=== PATIENT | female | born 1935 | race Hispanic/Latino ===

== ENCOUNTER 2018-06-16 16:25 | Observation (INO) | payer MEDICARE ==
[~2018-06-16] VITALS: Ht 154.9 cm; Wt 56.7 kg
[2018-06-16] MEDS ORDERED: MORPHINE SULFATE 2 MG/ML SYR IV STA (16:35)
[2018-06-16] MEDS ORDERED: SODIUM CHLORIDE 0.9% 500ML 500 ML IV STA (16:35)
[2018-06-16] MEDS ORDERED: ONDANSETRON HCL INJ 2 MG/ML VIAL IV STA (16:35)
[2018-06-16 17:11] LABS: BASOPHILS # (AUTO) 0.1 (0.0-0.1); BASOPHILS % 0.7 % (0.0-1.0); EOSINOPHILS % 0.4 % (0.0-6.0); HEMATOCRIT 35.6 % (34.2-44.1); HEMOGLOBIN 11.8 g/dL (12.0-16.0); LYMPHOCYTES % 13.6 % (18.0-39.1); MEAN CORPUSCULAR HEMOGLOBIN 32.9 pg (28-32); MEAN CORPUSCULAR HGB CONC 33.1 g/dL (31-35); MEAN CORPUSCULAR VOLUME 99.2 fL (81-99); MONOCYTES # (AUTO) 0.3 (0.2-0.8); MONOCYTES % 4.2 % (4.4-11.3); NEUTROPHILS % 80.8 % (38.7-80.0); PLATELET COUNT 203 x10e3/uL (140-360); RED BLOOD COUNT 3.59 x10e6/uL (3.6-5.1); RED CELL DISTRIBUTION WIDTH 12.4 % (11.7-14.4)
[2018-06-16 17:21] LABS: INR 1.11; PARTIAL THROMBOPLASTIN TIME 25.9 seconds (23.8-35.5); PROTHROMBIN TIME 13.5 seconds (11.9-14.5)
[2018-06-16 17:32] LABS: ALANINE AMINOTRANSFERASE 11 IU/L (0-55); ALBUMIN 3.5 g/dL (3.5-5.0); ALBUMIN/GLOBULIN RATIO 1.1 (0.8-2.0); ALKALINE PHOSPHATASE 94 IU/L (40-150); AMYLASE 67 U/L (25-125); BLOOD UREA NITROGEN 15 mg/dL (7-26); BUN/CREATININE RATIO 24 (6-25); CALCIUM 9.2 mg/dL (8.4-10.2); CARBON DIOXIDE 23 mmol/L (22-29); CHLORIDE 105 mmol/L (98-107); CREATINE KINASE 59 IU/L (29-168); CREATININE, SERUM 0.63 mg/dL (0.57-1.11); EST GLOMERULAR FILTRATION RATE > 60 ML/MIN (60-); GLUCOSE 112 mg/dL (74-118); LIPASE 20 U/L (8-78); MAGNESIUM 2.1 MG/DL (1.3-2.1); SODIUM 139 mmol/L (136-145)
[2018-06-16 17:33] LABS: BILIRUBIN,URINE NEGATIVE (NEGATIVE); CLARITY,URINE CLEAR (CLEAR); COLOR,URINE YELLOW (YELLOW); KETONES,URINE NEGATIVE (NEGATIVE); LEUKOCYTE ESTERASE ,URINE NEGATIVE (NEGATIVE); NITRITE,URINE NEGATIVE (NEGATIVE); PROTEIN,URINE DIPSTICK NEGATIVE (NEGATIVE); URINE UROBILINOGEN 1 mg/dL (0.2 - 1)
--- NOTE | 2018-06-16 17:39 | Diagnostic Imaging Report ---
Examination: Single AP view of the chest. COMPARISON: None. INDICATION: Syncope IMPRESSION: 1. Lines and Tubes: None 2. Lungs are grossly clear. No consolidation or effusion. 3. Cardiomediastinal silhouette is normal. Pulmonary vasculature is normal. 4. No acute bony abnormalities. Degenerative changes in the thoracic spine and bilateral acromion clavicular joints. Ill-defined 1.1 cm calcification in the left breast. Correlate with mammography. Signed by: Dr. Yoni Chapa M.D. on 06/16/2018 5:35 PM
[2018-06-16 17:47] LABS: BACTERIA,URINE FEW /HPF; EPITHELIAL CELLS,URINE MODERATE /LPF; MUCUS,URINE MANY (RARE)
[2018-06-16] MEDS ORDERED: THORAZINE25 MG PO (18:12)
[2018-06-16] MEDS ORDERED: CARVEDILOL3.125 MG PO (18:12)
[2018-06-16] MEDS ORDERED: ALENDRONATE SOD70 MG PO (18:24)
[2018-06-16] MEDS ORDERED: PLAVIX75 MG PO (18:24)
[2018-06-16] MEDS ORDERED: MYRBETRIQ50 MG PO (18:24)
[2018-06-16] MEDS ORDERED: OMEPRAZOLE40 MG PO (18:24)
[2018-06-16] MEDS ORDERED: LOSARTAN POTAS100 MG PO (18:24)
[2018-06-16] MEDS ORDERED: NORCO 10-325 T1 EACH PO (18:24)
[2018-06-16] MEDS ORDERED: CITALOPRAM HBR20 MG PO (18:24)
[2018-06-16] MEDS ORDERED: NAMENDA10 MG PO (18:24)
[2018-06-16] MEDS ORDERED: BACLOFEN10 MG PO (18:24)
[2018-06-16] MEDS ORDERED: ATORVASTATIN CA20 MG PO (18:24)
[2018-06-16] MEDS ORDERED: MONTELUKAST SOD10 MG PO (18:24)
--- NOTE | 2018-06-16 19:55 | Diagnostic Imaging Report ---
EXAM: CT Abdomen and Pelvis WITH contrast INDICATION: \S\left lower abd pain w/ n/v- IV contrast only COMPARISON: None. TECHNIQUE: Abdomen and pelvis were scanned utilizing a multidetector helical scanner from the lung base to the pubic symphysis after administration of IV contrast. Coronal and sagittal reformations were obtained. Routine protocol was performed. Scan was performed when during portal venous phase. IV CONTRAST: 100 mL of Isovue-370 ORAL CONTRAST: None RADIATION DOSE: Total DLP: 170 mGy*cm Estimated effective dose: (DLP x 0.015 x size factor) mSv COMPLICATIONS: None FINDINGS: LINES and TUBES: None. LOWER THORAX: Unremarkable HEPATOBILIARY: No focal hepatic lesions. No biliary ductal dilation. GALLBLADDER: No radio-opaque stones or sludge. No wall thickening. SPLEEN: No splenomegaly. PANCREAS: No focal masses or ductal dilatation. ADRENALS: No adrenal nodules KIDNEYS/URETERS: Kidneys enhance symmetrically. No hydronephrosis. No cystic or solid mass lesions. No stones. GI TRACT: No abnormal distention, wall thickening, or evidence of bowel obstruction. Appendix is not visualized but no inflammatory changes in the right lower quadrant. PELVIC ORGANS/BLADDER: Unremarkable. LYMPH NODES: No lymphadenopathy. VESSELS: Unremarkable. PERITONEUM / RETROPERITONEUM: No free air or fluid. BONES: Partially visualized intramedullary jeremy in the left femur. Remote posttraumatic deformity of the left inferior pubic ramus. Multilevel degenerative changes of the lumbar spine. SOFT TISSUES: Unremarkable. IMPRESSION: No acute abnormality within the abdomen and pelvis. Signed by: Dr. Darby Buckley M.D. on 06/16/2018 7:52 PM
[2018-06-16] MEDS: SODIUM CHLORIDE 0.9% 1000ML 1,000 ML IV SCH (20:24)
[2018-06-16] MEDS ORDERED: SODIUM CHLORIDE 0.9% 50ML 50 ML ONE (21:07)
[2018-06-16] MEDS ORDERED: IOPAMIDOL 370 MG/ML 200 ML INFUS..BTL INJ ONE (21:07)
[2018-06-16 21:45] VITALS: BP 144/66
[2018-06-16 22:00] VITALS: BP 146/74
[2018-06-16] MEDS: ONDANSETRON HCL INJ 2 MG/ML VIAL IV PRN (23:22)
[2018-06-16] MEDS: MORPHINE SULFATE 2 MG/ML SYR IV PRN (23:22)
[2018-06-17] VITALS (10 sets, daily range): BP systolic 115–158; BP diastolic 56–74
[2018-06-17] MEDS: ACETAMINOPHEN 325 MG TAB PO PRN (03:16)
[2018-06-17 05:32] LABS: BASOPHILS # (AUTO) 0.1 (0.0-0.1); EOSINOPHILS # (AUTO) 0.1 (0.0-0.4); EOSINOPHILS % 2.2 % (0.0-6.0); HEMATOCRIT 31.7 % (34.2-44.1); HEMOGLOBIN 10.6 g/dL (12.0-16.0); LYMPHOCYTES # (AUTO) 1.2 (1.0-3.2); LYMPHOCYTES % 23.5 % (18.0-39.1); MEAN CORPUSCULAR HEMOGLOBIN 32.9 pg (28-32); MEAN CORPUSCULAR HGB CONC 33.4 g/dL (31-35); MEAN CORPUSCULAR VOLUME 98.4 fL (81-99); MONOCYTES # (AUTO) 0.4 (0.2-0.8); MONOCYTES % 7.7 % (4.4-11.3); NEUTROPHILS # (AUTO) 3.2 (2.1-6.9); NEUTROPHILS % 65.4 % (38.7-80.0); PLATELET COUNT 202 x10e3/uL (140-360); RED BLOOD COUNT 3.22 x10e6/uL (3.6-5.1); RED CELL DISTRIBUTION WIDTH 12.4 % (11.7-14.4)
[2018-06-17 05:54] LABS: CREATINE KINASE MB 0.7 ng/mL (0-5.0)
[2018-06-17 06:05] LABS: ANION GAP 10.3 mmol/L (8-16); BLOOD UREA NITROGEN 10 mg/dL (7-26); BUN/CREATININE RATIO 17 (6-25); CALCIUM 8.7 mg/dL (8.4-10.2); CARBON DIOXIDE 25 mmol/L (22-29); CHLORIDE 109 mmol/L (98-107); EST GLOMERULAR FILTRATION RATE > 60 ML/MIN (60-); GLUCOSE 98 mg/dL (74-118); POTASSIUM 3.3 mmol/L (3.5-5.1); SODIUM 141 mmol/L (136-145)
[2018-06-17] MEDS: HYDROCODONE/APAP 10MG-325MG TAB PO PRN ×2 (08:00→17:30)
[2018-06-17] MEDS: SODIUM CHLORIDE 0.9% 1000ML 1,000 ML IV SCH ×2 (10:47→23:04)
[2018-06-17 12:29] LABS: CREATINE KINASE MB 0.6 ng/mL (0-5.0)
[2018-06-17] MEDS ORDERED: PANTOPRAZOLE SOD 40 MG TABEC PO ONE (15:45)
[2018-06-17 15:51] LABS: % IRON SATURATION 29 % (15-50); IRON 78 ug/dL (50-170); TOTAL IRON BINDING CAPACITY 265 ug/dL (261-478); TRANSFERRIN 189 mg/dL (180-382)
[2018-06-17 16:10] LABS: FOLATE 17.9 ng/mL (7.0-15.4)
[2018-06-17] MEDS: CARVEDILOL 3.125 MG TAB PO SCH (17:30)
[2018-06-17] MEDS: MEMANTINE 10 MG TAB PO SCH (17:30)
[2018-06-17] MEDS: LOSARTAN POTASSIUM 25 MG TAB PO SCH (17:30)
--- NOTE | 2018-06-17 17:58 | History and Physical ---
Patient of Dr. Lv Salazar and Dr. Khoury. [facility] 83[facility] with a history of dementia and depression. She denies history of coronary disease. Episode of near syncope after vomiting twice. She also had chills and elevated blood pressure. She has a history of chronic left upper quadrant pain for 3 months. She has a history of attempted colonoscopy, but failed. History of decreased appetite, history of tooth extraction recently. History of strokes times 2. History of fall and left hip repair. History of hypertension and coronary disease with stent. Born in and housewife. ALLERGIES: ADENOSINE, QUESTIONABLE BETA HAIR. She is on Coreg, Persantine and Procaine. Complains of chronic weakness, shortness of breath with the pain in the left upper quadrant. Stroke in November affected her speech, which has recovered. She has had coronary stents. She denies depression, but the family says she has been depressed. MEDICATIONS: Include losartan, alendronate, Lipitor, Baclofen, Coreg, Celexa, Plavix, Vicodin, and Namenda. PHYSICAL EXAMINATION GENERAL: She is a well-developed white female in no acute distress. Appears stated age. VITALS: Temperature 98.6, pulse 77, respirations 20, blood pressure 158/70. HEENT: Head is normocephalic and atraumatic. HEART: Regular rhythm. ABDOMEN: Tender in the left upper quadrant. EXTREMITIES: Nonedematous. IMPRESSION 1. Vasovagal near syncope. 2. Weight loss. 3. Anemia. 4. Left upper quadrant pain. The patient has agreed to allow GI opinion. Will ask Dr. Robert Voss to see the patient. Physical therapy. Evaluation of anemia. Continue home medications. Reduce dose of losartan. Check postural signs. Thank you for this kind referral. Job#: [id number] DE
[2018-06-17] MEDS: BACLOFEN 10 MG TAB PO SCH (21:30)
[2018-06-17] MEDS: ATORVASTATIN 40 MG TAB PO SCH (21:30)
[2018-06-17] MEDS: HEPARIN SOD (PORCINE) 5,000 UNIT/ML VIAL SC SCH (21:35)
[2018-06-17] MEDS ORDERED: CYANOCOBALAMIN INJ 1,000 MCG/ML VIAL IM STA (22:24)
[2018-06-17] MEDS ORDERED: DONNATAL/LIDOCAINE/MAALOX 30 ML SUSP PO ONE ×2 (22:30→23:00)
[2018-06-17] MEDS ORDERED: PANTOPRAZOLE 40 MG 10ML VIAL IV STA (22:39)
[2018-06-17] MEDS: PANTOPRAZOLE 40 MG 10ML VIAL IV SCH (23:15)
[2018-06-17] MEDS ORDERED: MAGNESIUM/ALUMINUM/SIMETHICONE 30 ML UDC PO ONE (23:30)
[2018-06-17] MEDS ORDERED: LIDOCAINE VISC 2% SOLN 15 ML UDC PO ONE (23:30)
[2018-06-17] MEDS ORDERED: BELLADONNA ALK/PHENOBARBITAL 5 ML UDC PO ONE (23:30)
[2018-06-18] VITALS (8 sets, daily range): BP systolic 121–174; BP diastolic 58–74
[2018-06-18] MEDS: HYDROCODONE/APAP 10MG-325MG TAB PO PRN ×2 (02:32→11:01)
[2018-06-18] MEDS: ACETAMINOPHEN 325 MG TAB PO PRN (05:22)
[2018-06-18] MEDS ORDERED: ALENDRONATE SODIUM 70 MG TAB PO SCH (07:30)
[2018-06-18] MEDS ORDERED: PANTOPRAZOLE SOD 40 MG TABEC PO SCH ×2 (07:30→09:00)
[2018-06-18] MEDS ORDERED: CLOPIDOGREL BISULFATE 75 MG TAB PO SCH (09:00)
[2018-06-18] MEDS: CYANOCOBALAMIN INJ 1,000 MCG/ML VIAL IM SCH (09:32)
[2018-06-18] MEDS: PANTOPRAZOLE 40 MG 10ML VIAL IV SCH ×2 (09:32→21:30)
[2018-06-18] MEDS: CARVEDILOL 3.125 MG TAB PO SCH ×2 (09:32→16:58)
[2018-06-18] MEDS: CITALOPRAM HYDROBROMIDE 20 MG TAB PO SCH (09:32)
[2018-06-18] MEDS: LOSARTAN POTASSIUM 25 MG TAB PO SCH ×2 (09:33→16:57)
[2018-06-18] MEDS: MONTELUKAST SODIUM 10 MG TAB PO SCH (09:33)
[2018-06-18] MEDS: HEPARIN SOD (PORCINE) 5,000 UNIT/ML VIAL SC SCH ×2 (09:33→21:20)
[2018-06-18] MEDS: MEMANTINE 10 MG TAB PO SCH ×2 (09:33→16:57)
[2018-06-18] MEDS: SODIUM CHLORIDE 0.9% 1000ML 1,000 ML IV SCH (12:12)
[2018-06-18] MEDS: ATORVASTATIN 40 MG TAB PO SCH (21:30)
[2018-06-18] MEDS: BACLOFEN 10 MG TAB PO SCH (21:30)
[2018-06-19] VITALS (7 sets, daily range): BP systolic 124–161; BP diastolic 58–71
[2018-06-19] MEDS ORDERED: TRAZODONE HCL 50 MG TAB ONE (00:32)
[2018-06-19] MEDS: SODIUM CHLORIDE 0.9% 1000ML 1,000 ML IV SCH ×2 (01:54→14:57)
[2018-06-19] MEDS: ONDANSETRON HCL INJ 2 MG/ML VIAL IV PRN (03:44)
[2018-06-19] MEDS: MORPHINE SULFATE 2 MG/ML SYR IV PRN ×2 (03:45→12:16)
[2018-06-19] MEDS: HEPARIN SOD (PORCINE) 5,000 UNIT/ML VIAL SC SCH (09:00)
[2018-06-19] MEDS: MEMANTINE 10 MG TAB PO SCH ×2 (09:00→17:10)
[2018-06-19] MEDS: MONTELUKAST SODIUM 10 MG TAB PO SCH (09:00)
[2018-06-19] MEDS: CITALOPRAM HYDROBROMIDE 20 MG TAB PO SCH (09:57)
[2018-06-19] MEDS: CYANOCOBALAMIN INJ 1,000 MCG/ML VIAL IM SCH (09:57)
[2018-06-19] MEDS: PANTOPRAZOLE 40 MG 10ML VIAL IV SCH (09:57)
[2018-06-19] MEDS: LOSARTAN POTASSIUM 25 MG TAB PO SCH ×2 (10:01→17:10)
[2018-06-19] MEDS: CARVEDILOL 3.125 MG TAB PO SCH ×2 (10:01→17:10)
[2018-06-19] MEDS ORDERED: POTASSIUM CHLORIDE 20MEQ/100ML 200 ML IV ONE (11:30)
--- NOTE | 2018-06-19 15:48 | Operative Report ---
DATE OF PROCEDURE: June 19, 2018 REFERRING PHYSICIAN: Dr. Khoury/Dr. Lance PROCEDURE PERFORMED: Esophagogastroduodenoscopy with biopsies. INDICATIONS FOR EGD: Upper abdominal pain, primarily left upper quadrant. MEDICATION: Patient was done under MAC. Please see anesthesiologist's note. PROCEDURE: With the patient in the left lateral decubitus position, the flexible fiberoptic Olympus gastroscope was introduced into the esophagus under direct visualization without any difficulty. There was some patchy erythema noted in the distal esophagus. The scope was then advanced with ease into the stomach, traversing a small sliding hiatal hernia. Mucosa overlying the antrum and the body revealed some patchy erythema and low-grade to moderate edema, and biopsies were obtained and sent to stain for H. pylori. Pylorus appeared to be of normal contour and shape. It was intubated with ease, and the scope was advanced all the way to the 2nd portion of the duodenum. The scope was then withdrawn slowly. Mucosa overlying the proximal 2nd portion and the duodenal bulb appeared to be within normal limits. The scope was then withdrawn back into the stomach and retroflexed. Mucosa overlying the fundus and cardia appeared to be within normal limits. The scope was then straightened out. It was subsequently withdrawn. Patient tolerated the procedure well. IMPRESSION 1. Distal esophagitis. 2. Small sliding hiatal hernia. 3. Gastritis, biopsied. Biopsies sent to stain for H. pylori. PLAN: Follow up histology. Initiate Protonix 40 mg 1 p.o. q.a.m. a.c. Job#: [id number] cc:MD ROSALVA ABDUL MD
[2018-06-19] MEDS ORDERED: CARAFATE1 GM/10 ML PO (17:27)
[2018-06-19] MEDS ORDERED: PANTOPRAZOLE SO40 MG PO (17:27)
[2018-06-19] MEDS ORDERED: LIDOCAINE HCL 2% LOCAL INJ 5 ML SDV VIAL INJ ONE (19:46)
[2018-06-19] MEDS ORDERED: PROPOFOL IV EMULSION 10 MG/ML 50 ML VIAL IV ONE (19:46)
--- NOTE | 2018-06-22 16:35 | Discharge Summary ---
FINAL DIAGNOSES 1. Near syncope. 2. Weight loss. 3. Anemia. 4. History of hypertension. ADMISSION HISTORY AND HOSPITAL COURSE: Ms. Campbell is an 83-year-old female who has dementia and depression, presented with near syncopal episode. Patient was found to be anemic. GI was consulted. Dr. Robert Voss performed EGD, which showed evidence of esophagitis and hiatal hernia and he recommended the patient can be discharged home. Discharge medication list was reviewed. Patient will be discharged home to follow up with her primary care physician and follow up with Dr. Robert Voss. EMANUEL JC MD Job#: [id number] VAS
== END 2018-06-19 19:47 | disposition home or self-care (01) ==
LOC: ER 16:25 → ERHOLD 20:12 → MED/SURG 21:46
PROVIDERS: ADMIT Internal Medicine; ATTEND Internal Medicine
DX: R55 Syncope and collapse (principal); R11.2 Nausea with vomiting, unspecified; F03.90 Unspecified dementia, unspecified severity, without behavioral disturbance, psychotic disturbance, mood disturbance, and anxiety; D64.9 Anemia, unspecified; R63.4 Abnormal weight loss; I25.10 Atherosclerotic heart disease of native coronary artery without angina pectoris; Z95.5 Presence of coronary angioplasty implant and graft; Z86.73 Personal history of transient ischemic attack (TIA), and cerebral infarction without residual deficits; K20.9 Esophagitis, unspecified; K44.9 Diaphragmatic hernia without obstruction or gangrene; K29.70 Gastritis, unspecified, without bleeding; Z88.8 Allergy status to other drugs, medicaments and biological substances; R10.12 Left upper quadrant pain
CPT/HCPCS: 36415 ×2; 43239; 71045; 74177; 80048; 80053; 81001; 82150; 82550 ×2; 82553 ×2; 82607; 82746; 83090; 83540; 83690; 83735; 83921; 84466; 84484 ×2; 85025 ×2; 85610; 85730; 88305; 88312; 93005; 97116; 97161; 99284; G0378 ×4; G8978; G8980; J1644 ×2; J2001; J2270 ×3; J2405 ×3; J3420 ×3; J3480; J7030 ×4; J7040; Q9967; S0164

== ENCOUNTER → 2018-07-27 | Day surgery (SDC) | payer MEDICARE, OTHER ==
[2018-07-17 16:53] LABS: BASOPHILS % 0.8 % (0.0-1.0); EOSINOPHILS # (AUTO) 0.2 (0.0-0.4); EOSINOPHILS % 3.2 % (0.0-6.0); HEMATOCRIT 36.9 % (34.2-44.1); HEMOGLOBIN 12.5 g/dL (12.0-16.0); LYMPHOCYTES # (AUTO) 1.5 (1.0-3.2); LYMPHOCYTES % 27.8 % (18.0-39.1); MEAN CORPUSCULAR HGB CONC 33.9 g/dL (31-35); MEAN CORPUSCULAR VOLUME 97.4 fL (81-99); MONOCYTES # (AUTO) 0.3 (0.2-0.8); MONOCYTES % 6.4 % (4.4-11.3); NEUTROPHILS # (AUTO) 3.3 (2.1-6.9); NEUTROPHILS % 61.6 % (38.7-80.0); PLATELET COUNT 213 x10e3/uL (140-360); RED BLOOD COUNT 3.79 x10e6/uL (3.6-5.1); RED CELL DISTRIBUTION WIDTH 12.3 % (11.7-14.4)
[~2018-07-27] MED LIST: ALENDRONATE SOD70 MG PO; ASPIRIN81 MG PO; ATORVASTATIN CA20 MG PO; BACLOFEN10 MG PO; CARAFATE1 GM/10 ML PO; CARVEDILOL3.125 MG PO; CIPRO500 MG PO; CITALOPRAM HBR20 MG PO; LIDOCAINE HCL 2% LOCAL INJ 5 ML SDV VIAL INJ ONE; LOSARTAN POTAS100 MG PO; MONTELUKAST SOD10 MG PO; MYRBETRIQ50 MG PO; NAMENDA10 MG PO; NIFEDIPINE ER30 M1 PO; NORCO 10-325 T1 EACH PO; OMEPRAZOLE40 MG PO; PANTOPRAZOLE SO40 MG PO; PLAVIX75 MG PO; PROPOFOL IV EMULSION 10 MG/ML 20 ML VIAL ONE; THORAZINE25 MG PO
--- OUTSIDE RECORDS SUMMARY | 2018-07-27 07:45 | XMS REPORT | Continuity of Care Document ---
Author Author [facility] lizbet [facility] Interface Address Unknown Phone Unavailable Problems Problem Status Onset Date Classification Date Reported Comments Source FX OF PROXIMAL END OF LEFT FEMUR Active 12/06/2017 [facility] FX Active 12/06/2017 [facility] DISPLACED INTERTROCHANTERIC FRACTURE OF Active [facility] Medications Medication Details Route Status Patient Instructions Ordering Provider Order Date Source Allergies, Adverse Reactions, Alerts Substance Category Reaction Severity Reaction type Status Date Reported Comments Source Immunizations Immunization Date Given Site Status Last Updated Comments Source Results Order Name Results Value Reference Range Date Interpretation Comments Source Carotid artery Doppler bilat US Carotid artery Doppler bilat US EXAM: US EXTRACRANIAL ARTERIAL DOPPLER DATE: 12/11/2017 5:41 PM [facility] INDICATION: - repeated syncope with no EKG changes ADDITIONAL INFORMATION: None. COMPARISON: None. TECHNIQUE: Multiplanar grayscale, color Doppler and spectral Doppler ultrasound of the carotid and vertebral arteries. FINDINGS: Right Carotid System: Right Common Carotid Artery (RCCA): PSV 1 30 cm/s. No significant plaque. Right Internal Carotid Artery (REBEKAH): PSV 89 cm/s. No significant plaque. Right External Carotid Artery (RECA): PSV 198 cm/s. No significant plaque. ICA/CCA ratio 0.68 Right Vertebral Artery (RVA): Normal velocity and waveform. Left Carotid System: Left Common Carotid Artery (LCCA): PSV 104 cm/s. No significant plaque. Left Internal Carotid Artery (LICA): PSV 102 cm/s. No significant plaque. Left External Carotid Artery (LECA): PSV 1 78 cm/s. No significant plaque. IC/CC ratio 0.98 Left Vertebral Artery (LVA): Normal velocity and waveform. IMPRESSION: 1. Right internal carotid artery: No hemodynamically significant stenosis. 2. Left internal carotid artery: No hemodynamically significant stenosis. 3. Vertebral arteries: Antegrade flow with normal waveforms bilaterally. According to the 2003 Consensus criteria: <50% stenosis: PSV <125 cm/sec, EDV <40cm/sec, ICA:CCA ratio <2 50-69% stenosis: PSV 125-230cm/sec, EDV 40-100cm/sec, ICA:CCA ratio 2-4 >70% stenosis: PSV >230cm/sec, EDV >100cm/sec, ICA:CCA ratio >4 REFERENCE: Radiology. 2003 [id number]. Carotid Artery Stenosis: Wood-scale and Doppler US diagnosis- Society of Radiologists in Ultrasound Consensus Conference. Daron EG, Naldo CB, [place]yenne GL, et. al. 12/12/2017 - - This report was dictated by a [employer]/Fellow. I have personally reviewed the images as well as the Resident's interpretation and agree with the findings. Read by: Alexus Vigil MD Resident: Alexus Vigil MD Dictated Date/time: 12/13/17 08:28 Electronically Signed by: David Reinoso MD 12/13/17 11:58 FINAL REPORT [facility] Femur series DX Femur series DX EXAM: XR FEMUR 2 VIEWS DATE: 12/07/2017 2:07 PM HOSIERY MATER INDICATION: POST OP XRAY IM NAIL LT FEMUR - POST OP XRAY IM NAIL LT FEMUR COMPARISON: Left femur series 12/06/2017 TECHNIQUE: AP and lateral radiographs of the femur Laterality: Left FINDINGS: Satisfactory alignment of left intertrochanteric femur fracture post cephalomedullary nail fixation. Mildly displaced nonfixated lesser trochanter fragment noted. No hardware malalignment. Mild hip soft tissue gas. IMPRESSION: Satisfactory appearance of internally fixated intertrochanteric femur fracture. 12/07/2017 - - Read by: Mumtaz Romano MD Dictated Date/time: 12/07/17 17:22 Electronically Signed by: Mumtaz Romano MD 12/07/17 17:24 FINAL REPORT [facility] Vital Signs Vital Sign Value Date Comments Source Encounters Location Location Details Encounter Type Encounter Number Reason For Visit Attending Provider ADM Date DC Date Status Source Procedures Procedure Code Date Perfomer Comments Source
--- OUTSIDE RECORDS SUMMARY | 2018-07-27 07:45 | XMS REPORT | Clinical Summary ---
Author Author [facility] Organization [facility] Address Unknown Phone Unavailable Care Team Providers Care Tennis Instructor Name Role Phone PCP Unavailable Allergies Active Allergy Reactions Severity Noted Date Comments Adenosine 12/06/2017 Beta-Blockers 12/06/2017 (Beta-Adrenergic Blocking Agts) Procaine Hcl 12/06/2017 Current Medications Prescription Sig. Disp. Refills Start End Date Status Date amLODIPine (NORVASC) 10 Take 10 mg by mouth Active mg tablet daily. hydrochlorothiazide Take 25 mg by mouth Active (HYDRODIURIL) 25 mg daily. tablet metoprolol (TOPROL XL) 50 Take 50 mg by mouth Active mg extended release daily. tablet atorvastatin (LIPITOR) 40 Take 40 mg by mouth at Active mg tablet bedtime nightly. ASPIRIN EC (ASPIR-LOW) 81 Take 81 mg by mouth Active mg delayed release tablet daily. chlorhexidine (PERIDEX) Swish with 1/2 oz of 473 mL 0 08/10/20 Active 0.12 % mouth solution in mouth for 30 18 washIndications: seconds and spit. Use Dentalgia twice daily.. naproxen (NAPROSYN) 500 Take 1 tablet by mouth 2 30 tablet 0 08/10/20 Active mg tabletIndications: times daily (with meals). 18 Dentalgia Active Problems Problem Noted Date Acute pain of left hip 12/06/2017 Fall 12/06/2017 Hypoxia 12/06/2017 Closed comminuted intertrochanteric fracture of left femur 12/06/2017 Overview: Added automatically from request for surgery [id number] GERD (gastroesophageal reflux disease) 04/11/2014 Encounters Date Type Specialty Care Team Description 05/19/2018 Office Visit Family Practice Evan Burnham PA Dentalgia (Primary Dx) 12/07/2017 Telephone Sterling Bustos Carmen Interpretation Chele 12/07/2017 Procedure Pass 12/06/2017 Emergency Emergency Medicine Eldon Garcia MD Acute pain of left hip Stacey Oconnell MD (Primary Dx); Fall, initial encounter; Hypoxia after 07/26/2017 Immunizations Name Dates Previously Given Next Due Pcv-13 Pneumococcal 05/19/2018 (Deferred: Patient Refused) Conjugate Social History Tobacco Use Types Packs/Day Years Used Date Never Smoker Smokeless Tobacco: Never Used Alcohol Use Drinks/Week oz/Week Comments No Sex Assigned at Date Recorded Not on file Last Filed Vital Signs Vital Sign Reading Time Taken Blood Pressure 120/85 05/19/2018 2:09 PM CDT Pulse 78 05/19/2018 2:09 PM CDT Temperature 37.1 C (98.7 F) 05/19/2018 2:09 PM CDT Respiratory Rate 19 05/19/2018 2:09 PM CDT Oxygen Saturation 99% 12/06/2017 5:15 PM [employer] Inhaled Oxygen - - Concentration Weight 52.2 kg (115 lb) 05/19/2018 2:09 PM CDT Height 154.9 cm (5' 1") 05/19/2018 2:09 PM CDT Body Mass Index 21.73 05/19/2018 2:09 PM CDT Plan of Treatment Health Maintenance Due Date Last Done Comments IMM Pneumococcal Age 65 01/18/2001 and Up IMM Influenza Seasonal 07/10/2018Jul to December (>/=19 yrs) Procedures Procedure Name Priority Date/Time Associated Diagnosis Comments XRAY CHEST 1 VIEW STAT 12/06/2017 Acute pain of left hip Results for this 4:28 PM [employer] procedure are in the results section. UA CHEMISTRIES STAT 12/06/2017 Results for this 4:13 PM [employer] procedure are in the results section. XRAY KNEE 1 OR 2 VIEWS STAT 12/06/2017 Acute pain of left hip Results for this (LIMITED-AP/LAT) 3:01 PM [employer] procedure are in the results section. XRAY CHEST 1 VIEW STAT 12/06/2017 Hypoxia Results for this 3:01 PM [employer] procedure are in the results section. XRAY FEMUR 2 VIEWS STAT 12/06/2017 Acute pain of left hip Results for this 3:01 PM [employer] procedure are in the results section. XRAY HIP BILATERAL 2 STAT 12/06/2017 Acute pain of left hip Results for this VIEWS AND AP PELVIS 3:01 PM [employer] procedure are in the results section. BMP POC Routine 12/06/2017 Results for this 2:43 PM [employer] procedure are in the results section. CT HEAD W/O CONTRAST STAT 12/06/2017 Fall, initial encounter Results for this 2:15 PM [employer] procedure are in the results section. 12 LEAD EKG Routine 12/06/2017 Results for this 1:53 PM [employer] procedure are in the results section. VBG POC Routine 12/06/2017 Results for this 1:48 PM [employer] procedure are in the results section. TROPONIN I POC Routine 12/06/2017 Results for this 1:45 PM [employer] procedure are in the results section. TYPE AND SCREEN STAT 12/06/2017 1:40 PM [employer] PT/INR/PTT STAT 12/06/2017 Results for this 1:40 PM [employer] procedure are in the results section. CBC/DIFF STAT 12/06/2017 Results for this 1:40 PM [employer] procedure are in the results section. after 07/26/2017 Results * XRAY CHEST 1 VIEW (12/06/2017 4:28 PM) Only the most recent of 2 results within the time period is included. Impressions Performed At IMPRESSION:No acute radiographic abnormality of the chest SMS Signed By: Williams Muhammad MD, 12/06/2017 4:22 PM Narrative Performed At EXAM: XR CHEST 1 VIEW SMS DATE:12/06/2017 4:10 PM INDICATION: preop COMPARISON: 12/06/2017 TECHNIQUE:AP chest. DISCUSSION: Lines/tubes/devices: None. Lungs and pleura: The lungs are clear. The costophrenic sulci are sharp, without effusion. Pulmonary vascularity is normal. Heart and mediastinum: The heart size is normal. Mediastinal contours are normal. Bones: No acute bony abnormality is identified. Procedure Note Interface, Rad/Mammog In - 12/06/2017 4:44 PM [employer] EXAM: XR CHEST 1 VIEW DATE: 12/06/2017 4:10 PM INDICATION: preop COMPARISON: 12/06/2017 TECHNIQUE: AP chest. DISCUSSION: Lines/tubes/devices: None. Lungs and pleura: The lungs are clear. The costophrenic sulci are sharp, without effusion. Pulmonary vascularity is normal. Heart and mediastinum: The heart size is normal. Mediastinal contours are normal. Bones: No acute bony abnormality is identified. IMPRESSION IMPRESSION: No acute radiographic abnormality of the chest Signed By: Williams Muhammad MD, 12/06/2017 4:22 PM Performing Organization Address City/State/Zipcode Phone Number SMS * UA CHEMISTRIES (12/06/2017 4:13 PM) Color Yellow [facility] Clarity Clear [facility] Spec [place] 1.025 1.001 - 1.035 [facility] pH 5.0 5 - 8 [facility] Protein 1+ (A) NEG [facility] Glucose Negative NEG [facility] Ketone Trace (A) NEG [facility] Bilirubin Negative NEG [facility] Nitrate Negative NEG [facility] Urobilinogen <1.0 0.2 - 1.0 EU/dL [facility] Leukocyte Negative NEG [facility] Blood Negative NEG [facility] RBC 1 0 - 4 /HPF [facility] WBC 1 0 - 5 /HPF [facility] Bacteria Few [facility] Epithelial Cell <1 /HPF [facility] Mucous Present [facility] Hyaline Cast 3 /LPF [facility] Specimen Urine Performing Organization Address City/State/[facility] Phone [facility] * XRAY FEMUR 2 VIEWS (12/06/2017 3:01 PM) Impressions Performed At IMPRESSION: Comminuted and mildly displaced intertrochanteric left femur SMS fracture with associated soft tissue swelling Signed By: Williams Muhammad MD, 12/06/2017 3:33 PM Narrative Performed At EXAM: XR BILATERAL HIP 2 VIEWS SMS EXAM: XR LEFT FEMUR 2 VIEWS EXAM: XR LEFT KNEE 2 VIEWS DATE:12/06/2017 3:01 PM INDICATION: pain s/p fall COMPARISON: None TECHNIQUE: AP and frog-leg lateral views of the bilateral hips including the pelvis, AP and lateral radiographs of the left femur and left knee. DISCUSSION: There is a comminuted and mildly displaced intertrochanteric left femur fracture demonstrating mild varus angulation. There is mild superomedial displacement of the fractured lesser trochanter. Alignment of the femur at the hip and knee joints is normal. Left hip soft tissue swelling is visualized associated with the fracture. No other acute fracture. Left knee appears intact. No knee joint effusion. Procedure Note Interface, Rad/Mammog In - 12/06/2017 3:38 PM [employer] EXAM: XR BILATERAL HIP 2 VIEWS EXAM: XR LEFT FEMUR 2 VIEWS EXAM: XR LEFT KNEE 2 VIEWS DATE: 12/06/2017 3:01 PM INDICATION: pain s/p fall COMPARISON: None TECHNIQUE: AP and frog-leg lateral views of the bilateral hips including the pelvis, AP and lateral radiographs of the left femur and left knee. DISCUSSION: There is a comminuted and mildly displaced intertrochanteric left femur fracture demonstrating mild varus angulation. There is mild superomedial displacement of the fractured lesser trochanter. Alignment of the femur at the hip and knee joints is normal. Left hip soft tissue swelling is visualized associated with the fracture. No other acute fracture. Left knee appears intact. No knee joint effusion. IMPRESSION IMPRESSION: Comminuted and mildly displaced intertrochanteric left femur fracture with associated soft tissue swelling Signed By: Williams Muhammad MD, 12/06/2017 3:33 PM Performing Organization Address City/State/Zipcode Phone Number SMS * XRAY HIP BILATERAL 2 VIEWS AND AP PELVIS (12/06/2017 3:01 PM) Impressions Performed At IMPRESSION: Comminuted and mildly displaced intertrochanteric left femur SMS fracture with associated soft tissue swelling Signed By: Williams Muhammad MD, 12/06/2017 3:33 PM Narrative Performed At EXAM: XR BILATERAL HIP 2 VIEWS SMS EXAM: XR LEFT FEMUR 2 VIEWS EXAM: XR LEFT KNEE 2 VIEWS DATE:12/06/2017 3:01 PM INDICATION: pain s/p fall COMPARISON: None TECHNIQUE: AP and frog-leg lateral views of the bilateral hips including the pelvis, AP and lateral radiographs of the left femur and left knee. DISCUSSION: There is a comminuted and mildly displaced intertrochanteric left femur fracture demonstrating mild varus angulation. There is mild superomedial displacement of the fractured lesser trochanter. Alignment of the femur at the hip and knee joints is normal. Left hip soft tissue swelling is visualized associated with the fracture. No other acute fracture. Left knee appears intact. No knee joint effusion. Procedure Note Interface, Rad/Mammog In - 12/06/2017 3:38 PM [employer] EXAM: XR BILATERAL HIP 2 VIEWS EXAM: XR LEFT FEMUR 2 VIEWS EXAM: XR LEFT KNEE 2 VIEWS DATE: 12/06/2017 3:01 PM INDICATION: pain s/p fall COMPARISON: None TECHNIQUE: AP and frog-leg lateral views of the bilateral hips including the pelvis, AP and lateral radiographs of the left femur and left knee. DISCUSSION: There is a comminuted and mildly displaced intertrochanteric left femur fracture demonstrating mild varus angulation. There is mild superomedial displacement of the fractured lesser trochanter. Alignment of the femur at the hip and knee joints is normal. Left hip soft tissue swelling is visualized associated with the fracture. No other acute fracture. Left knee appears intact. No knee joint effusion. IMPRESSION IMPRESSION: Comminuted and mildly displaced intertrochanteric left femur fracture with associated soft tissue swelling Signed By: Williams Muhammad MD, 12/06/2017 3:33 PM Performing Organization Address City/State/Zipcode Phone Number SMS * XRAY KNEE 1 OR 2 VIEWS (LIMITED-AP/LAT) (12/06/2017 3:01 PM) Impressions Performed At IMPRESSION: Comminuted and mildly displaced intertrochanteric left femur SMS fracture with associated soft tissue swelling Signed By: Williams Muhammad MD, 12/06/2017 3:33 PM Narrative Performed At EXAM: XR BILATERAL HIP 2 VIEWS SMS EXAM: XR LEFT FEMUR 2 VIEWS EXAM: XR LEFT KNEE 2 VIEWS DATE:12/06/2017 3:01 PM INDICATION: pain s/p fall COMPARISON: None TECHNIQUE: AP and frog-leg lateral views of the bilateral hips including the pelvis, AP and lateral radiographs of the left femur and left knee. DISCUSSION: There is a comminuted and mildly displaced intertrochanteric left femur fracture demonstrating mild varus angulation. There is mild superomedial displacement of the fractured lesser trochanter. Alignment of the femur at the hip and knee joints is normal. Left hip soft tissue swelling is visualized associated with the fracture. No other acute fracture. Left knee appears intact. No knee joint effusion. Procedure Note Interface, Rad/Mammog In - 12/06/2017 3:38 PM [employer] EXAM: XR BILATERAL HIP 2 VIEWS EXAM: XR LEFT FEMUR 2 VIEWS EXAM: XR LEFT KNEE 2 VIEWS DATE: 12/06/2017 3:01 PM INDICATION: pain s/p fall COMPARISON: None TECHNIQUE: AP and frog-leg lateral views of the bilateral hips including the pelvis, AP and lateral radiographs of the left femur and left knee. DISCUSSION: There is a comminuted and mildly displaced intertrochanteric left femur fracture demonstrating mild varus angulation. There is mild superomedial displacement of the fractured lesser trochanter. Alignment of the femur at the hip and knee joints is normal. Left hip soft tissue swelling is visualized associated with the fracture. No other acute fracture. Left knee appears intact. No knee joint effusion. IMPRESSION IMPRESSION: Comminuted and mildly displaced intertrochanteric left femur fracture with associated soft tissue swelling Signed By: Williams Muhammad MD, 12/06/2017 3:33 PM Performing Organization Address [facility] Phone Number SMS * BMP POC (12/06/2017 2:43 PM) CO2 POC 27Comment: Physician Notified 21 - 32 mmol/L [facility] Chloride POC 104 98 - 107 mmol/L [facility] 1 Potassium POC 4.1 3.50 - 5.10 mmol/L [facility] 1 Sodium POC 137 136 - 145 mmol/L [facility] Glucose POC 117 (H) 74 - 106 mg/dL [facility] 1 Urea Nitrogen POC 17 7 - 18 mg/dL [facility] 1 Creatinine POC 0.4 (L) 0.6 - 1.3 mg/dL [facility] 1 Calcium Ionized POC 1.06 (L) 1.15 - 1.29 mmol/L [facility] 1 Hemoglobin POC 11.9 (L) 12.0 - 16.0 g/dL [facility] 1 Hematocrit POC 35.0 (L) 37.0 - 47.0 % [facility] 1 GFR, Estimated >60 mL/min/1.73 m2 [facility] 1 GFR, Estim, Afr-Am >60 mL/min/1.73 m2 [facility] 1 Performing Organization Address [facility]/[employer] Phone Number MISYS [facility] * CT HEAD W/O CONTRAST (12/06/2017 2:15 PM) Impressions Performed At IMPRESSION: SMS Superficial injuries. No acute intracranial abnormality. Small peripherally calcified mass in the subarachnoid space of the left temporal lobe is felt to represent evidence of neurocysticercosis exposure. Interpreted by Harrison Bowman M.D.,Staff radiologist. Signed By: Harrison Bowman MD, 12/06/2017 2:33 PM Narrative Performed At EXAM: CT BRAIN SMS DATE: 12/06/2017 INDICATION: Pain after trauma. COMPARISON: None TECHNIQUE Axial images of the brain are obtained. Computer reformatted sagittal and coronal images are also provided. DISCUSSION: Noncontrast images of the head demonstrate no intracranial hemorrhages or other brain injuries. There is no radiographic evidence of increased intracranial pressure. A small cystic lesion in the subarachnoid space of the left temporal lobe with peripheral calcification is felt to indicate evidence of prior neurocysticercosis exposure. No surrounding edema is present. Curvilinear calcifications are present in the basal ganglia bilaterally felt to be calcification along the course of lenticulostriate arteries, not a clinically significant finding. There is minimal scalp soft tissue swellingin the right frontal region, without underlying fracture. Procedure Note Interface, Rad/Mammog In - 12/06/2017 2:38 PM [employer] EXAM: CT BRAIN DATE: 12/06/2017 INDICATION: Pain after trauma. COMPARISON: None TECHNIQUE Axial images of the brain are obtained. Computer reformatted sagittal and coronal images are also provided. DISCUSSION: Noncontrast images of the head demonstrate no intracranial hemorrhages or other brain injuries. There is no radiographic evidence of increased intracranial pressure. A small cystic lesion in the subarachnoid space of the left temporal lobe with peripheral calcification is felt to indicate evidence of prior neurocysticercosis exposure. No surrounding edema is present. Curvilinear calcifications are present in the basal ganglia bilaterally felt to be calcification along the course of lenticulostriate arteries, not a clinically significant finding. There is minimal scalp soft tissue swelling in the right frontal region, without underlying fracture. IMPRESSION IMPRESSION: Superficial injuries. No acute intracranial abnormality. Small peripherally calcified mass in the subarachnoid space of the left temporal lobe is felt to represent evidence of neurocysticercosis exposure. Interpreted by Harrison Bowman M.D., Staff radiologist. Signed By: Harrison Bowman MD, 12/06/2017 2:33 PM Performing Organization Address City/State/Zipcode Phone Number SMS * 12 LEAD EKG (12/06/2017 1:53 PM) 12 LEAD EKG FOR CHP SMS [facility] Test Date:2017-12-06 Pat Name: LEONILA CAMPBELL Department: Room: Gender: F Cake Wringer: JAYDEN :[id number] Requested By: Order Number: [id number] chong MD: Glen Miles Measurements Intervals [place] Rate: 85 P:69 [place]: 164 QRS: 24 QRSD: 86 T:62 QT: 361 QTc:431 Interpretive Statements SINUS RHYTHM NONSPECIFIC T-WAVE ABNORMALITY Electronically Signed On 12-06-17 15:09:56 [employer] by Glen Miles Performing Organization Address [facility] Phone Number SMS * VBG POC (12/06/2017 1:48 PM) pH, [place] POC 7.46 (H) 7.33 - 7.43 [facility] pCO2, [place] POC 35.2 (L) 38.0 - 50.0 mm Hg [facility] pO2, [place] POC 71 50 - 75 mm Hg [facility] Base Excess, [place] POC 1 mmol/L [facility] 1 HCO3, [place] POC 24.9 22.0 - 26.0 mmol/L [facility] % Sat, [place] POC 95 (H) 60 - 85 % [facility] 1 Lactic Acid, [place] POC 1.92 0.4 - 2.0 mmol/L [facility] 1 TCO2, [place] POC 26 21 - 32 mmol/L [facility] Performing Organization Address [facility] Phone Number MISYS [facility] * TROPONIN I POC (12/06/2017 1:45 PM) Troponin POC 0.00 0.00 - 0.08 ng/mL [facility] Performing Organization Address [facility] Phone Number MISYS [facility] * PT/INR/PTT (12/06/2017 1:40 PM) PT 12.7 11.8 - 15.0 Seconds [facility] 4 INR 1.0 [facility] 4 SUGGESTED THERAPEUTIC RANGES: INR 2.0-3.0 for MODERATE INTENSITY ANTICOAGULATION INR 2.5-3.5 for HIGH INTENSITY ANTICOAGULATION PTT 28.5 23.6 - 36.4 Seconds [facility] 4 Specimen Blood Performing Organization Address [facility] Phone Number MISYS [facility] * CBC/DIFF (12/06/2017 1:40 PM) WBC 11.8 (H) 4.5 - 11.0 K/uL [facility] 2 RBC 3.73 (L) 4.20 - 5.40 M/uL [facility] 2 Hemoglobin 11.7 (L) 12.0 - 16.0 g/dL [facility] Hematocrit 37.7 37.0 - 47.0 % [facility] MCV 101 (H) 82 - 92 fL [facility] MCH 31.4 27.0 - 32.0 pg [facility] MCHC 31.0 (L) 32.0 - 36.0 g/dL [facility] 2 RDW 47.3 (H) 36.4 - 46.3 fL [facility] Platelet 108 (L) 150 - 400 K/uL [facility] 2 Mean Platelet Volume 12.0 9.4 - 12.4 fL [facility] 2 Percent NRBC 0.0 [facility] 2 Absolute NRBC 0.00 [facility] 2 Neutrophil 80.8 (H) 34.0 - 70.0 % [facility] Lymphocyte 13.0 (L) 20.0 - 50.0 % [facility] 2 Monocyte 3.4 (L) 5.0 - 12.0 % [facility] 2 Eosinophil 1.4 0.7 - 5.0 % [facility] 2 Basophil 0.6 0.1 - 1.2 % [facility] Pct Immat Gran 0.8 (H) 0.0 - 0.5 [facility] 2 Neutrophil, Abs 9.55 (H) 1.56 - 6.13 K/uL [facility] 2 Lymphocyte, Abs 1.53 1.18 - 3.74 K/uL [facility] 2 Monocyte, Abs 0.40 (H) 0.24 - 0.36 K/uL [facility] 2 Eosinophil, Abs 0.16 0.04 - 0.36 K/uL [facility] 2 Basophil, Abs 0.07 0.01 - 0.08 K/uL [facility] 2 Absol Immat Gran 0.09 (H) 0.00 - 0.03 K/uL [facility] 2 Specimen Blood Performing Organization Address City/State/[facility] Phone Number M[facility]YS [facility] 2 after 07/26/2017
[2018-07-27 11:15] VITALS: BP 138/67
== END | disposition home or self-care (01) ==
LOC: OR 07:42
PROVIDERS: ATTEND Internal Medicine
DX: K59.00 Constipation, unspecified (principal); K62.1 Rectal polyp; I25.10 Atherosclerotic heart disease of native coronary artery without angina pectoris; K57.30 Diverticulosis of large intestine without perforation or abscess without bleeding; K21.9 Gastro-esophageal reflux disease without esophagitis; I69.854 Hemiplegia and hemiparesis following other cerebrovascular disease affecting left non-dominant side; I69.820 Aphasia following other cerebrovascular disease; I10 Essential (primary) hypertension; I25.2 Old myocardial infarction; M81.0 Age-related osteoporosis without current pathological fracture; R06.02 Shortness of breath; Z01.810 Encounter for preprocedural cardiovascular examination; Z01.812 Encounter for preprocedural laboratory examination; Z79.02 Long term (current) use of antithrombotics/antiplatelets; Z79.82 Long term (current) use of aspirin
CPT/HCPCS: 36415; 45380; 85025; 88305; 93005; J2001